=== PATIENT | female | born 2000 | race Caucasian/White ===

== ENCOUNTER 2018-03-14 01:21 | Emergency (ER) | payer OTHER ==
--- NOTE | 2018-03-14 02:14 | ED ---
Lower Extremity - HPI Summary HPI Summary: Patient presents with left ankle injury that occurred Thursday night. She reports she was walking up a hill and her ankle inverted then everted. She was able to limp home on this. Reports she's had some swelling and feels some general tingling at times however denies numbness or weakness. She applied ice and elevated last night. Has not taken any pain medication. She is here tonight for evaluation. - History of Current Complaint Chief Complaint: EDExtremityLower Stated Complaint: LEFT ANKLE INJURY Time Seen by Provider: 03/14/18 02:01 Hx Obtained From: Patient, Family/Sports Medicine Coordinator - friends/co-workers Pain Intensity: 7 - Allergies/Home Medications Allergies/Adverse Reactions: Allergies Allergy/AdvReac Type Severity Reaction Status Date / Time No Known Allergies Allergy Verified 03/14/18 01:23 PMH/Surg Hx/FS Hx/Imm Hx Previously Healthy: Yes Endocrine/Hematology History: Reports: Hx Diabetes - type 2 - takes metformin Denies: Hx Anticoagulant Therapy, Hx Blood Disorders Infectious Disease History: No Infectious Disease History: Denies: Traveled Outside the [place] in Last 30 Days Physical Exam Vital Signs On Initial Exam: Initial Vitals Temp Pulse Resp BP Pulse Ox 97.6 F 92 16 133/86 99 03/14/18 01:23 03/14/18 01:23 03/14/18 01:23 03/14/18 01:23 03/14/18 01:23 Diagnostics - Vital Signs Vital Signs Temp Pulse Resp BP Pulse Ox 03/14/18 01:23 97.6 F 92 16 133/86 99 - Laboratory Lab Statement: Any lab studies that have been ordered have been reviewed, and results considered in the medical decision making process.
[2018-03-14 03:01] VITALS: BP 119/79
--- NOTE | 2018-03-14 07:43 | RAD ---
INDICATION: Left ankle pain COMPARISON: None TECHNIQUE: AP, lateral, and oblique views were obtained. FINDINGS: There is no acute fracture. There is lateral soft tissue swelling. IMPRESSION: LATERAL SOFT TISSUE SWELLING. R0
== END 2018-03-14 02:58 | disposition home or self-care (01) ==
LOC: ED 01:21
DX: S99.912A Unspecified injury of left ankle, initial encounter (principal); X50.9XXA Other and unspecified overexertion or strenuous movements or postures, initial encounter; Y92.9 Unspecified place or not applicable; E11.9 Type 2 diabetes mellitus without complications
CPT/HCPCS: 99282